=== PATIENT | female | born 1975 | race Caucasian/White ===

== ENCOUNTER 2016-09-10 18:06 | Emergency (ER) | payer OTHER ==
[~2016-09-10] VITALS: Ht 170.2 cm; Wt 90.7 kg
--- NOTE | 2016-09-10 18:57 | RADIOLOGY REPORT ---
EXAMINATION: XR ANKLE, RIGHT CLINICAL INFORMATION: Ankle pain and swelling. COMPARISON: None TECHNIQUE: AP, lateral, and mortise views of the right ankle. FINDINGS: There is a small osseous fragment at the tip of the lateral malleolus which is concerning for an acute avulsion injury. There is mild varus angulation of the tibiotalar joint. No acute talar fractures are identified. Soft tissues are swollen at the lateral and anterior aspects of the ankle most notably. More mild soft tissue swelling is present medially. Calcaneus is unremarkable aside from enthesopathic spurs at the Achilles tendon insertion and plantar fascial origin. IMPRESSION: 1. Small lateral malleolar avulsion fracture, likely at the attachment of the anterior talofibular ligament. Involvement of the calcaneofibular ligament is also possible as there is mild varus angulation at the tibiotalar joint. 2. Soft tissue swelling, most notably at the anterolateral aspect of the ankle
--- NOTE | 2016-09-10 19:31 | ED ANKLE/FOOT INJURY COMPLAINT ---
History of Present Illness General Chief Complaint: Foot or Ankle Injury Stated Complaint: RIGHT ANKLE, MISSED LAST STEP OF STAIRS Source: patient, family Exam Limitations: no limitations Vital Signs & Intake/Output Vital Signs & Intake/Output Vital Signs Date Time Temp Pulse Resp B/P Pulse O2 O2 Flow FiO2 Ox Delivery Rate 09/10 1820 97.1 88 18 150/102 99 Room Air Allergies Coded Allergies: No Known Allergies (09/10/16) Reconcile Medications Calcium Carb/Vit D3/Minerals (Calcium +D & Minerals Chew Tab) 600 MG-400 TAB.CHEW 1 TAB PO DAILY SUPPLEMENT (Reported) Ferrous Sulfate (IRON) 325 MG (65 MG IRON) TABLET 1 TAB PO DAILY SUPPLEMENT ( Reported) Magnesium Oxide (Magnesium) (Unknown Strength) CAPSULE (Unknown Dose) PO DAILY SUPPLEMENT (Reported) [place]-3 Acid Ethyl Esters (Lovaza) 1 GRAM CAPSULE 2 CAP PO BID CHOLESTEROL ( Reported) Oxycodone HCl/Acetaminophen (Percocet 5-325 MG Tablet) 5 MG-325 MG TABLET 1-2 TAB PO Q6P PRN PAIN Triage Note: SATTES THAT SHE MISSED THE LAST STEP AND THAT SHE HEARD A CRACK IN HER R FOOT. PAIN SWELLING AND BRUISING. 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 PT TOOK MOTRIN 800 MG PO PRIOR TO ARRIVAL Triage Nurses Notes Reviewed? yes : No Patient currently breastfeeds: No HPI: Patient states that she missed the last step and inverted her right ankle. Patient heard a pop. Since then she has been having a throbbing pain to her right ankle increases with any attempted movement. There is no radiation of the pain. Pain is 8 out of 10. There is no numbness or tingling. Patient denies hitting her head and there is no loss of consciousness. She denies any headache , nausea or vomiting. Past History Travel History Traveled to [place] past 21 day No Medical History Any Pertinent Medical History? 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 No Review of Systems Review of Systems Constitutional: Reports: no symptoms. Respiratory: Reports: no symptoms. Cardiovascular: Reports: no symptoms. GI: Reports: no symptoms. Musculoskeletal: Reports: see HPI, joint pain, joint swelling. Neurological/Psychological: Reports: no symptoms. Immunologic/Allergic: Reports: no symptoms. Physical Exam Physical Exam General Appearance: well developed/nourished, alert, awake Head: atraumatic, normal appearance Eyes: Bilateral: PERRL, EOMI. Neck: normal inspection, supple, no midline tenderness Leg/Knee/Thigh Left: normal range of motion, normal inspection Leg/Knee/Thigh Right: normal range of motion, normal inspection Ankle Right: ecchymosis, evidence of injury, pain, soft tissue tenderness, swelling, limited range of motion Foot Right: normal inspection, normal range of motion Neuro/Vascular: normal motor function, normal sensation Psychiatric: awake, alert, oriented x 3 Skin: intact, normal color, warm/dry Progress Differential Diagnosis: fracture, dislocation, sprain, contusion Plan of Care: Orders Procedure Date/time Status Durable Medical Equipment 09/10 1933 Active Diagnostic Imaging: Viewed by Me: Radiology Read. Discussed w/RAD: Radiology Read. Radiology Impression: PATIENT: LAZARO RIZO PRESENT AGE: 41 PATIENT ACCOUNT NO: [id number] : 77 LOCATION: [facility] ([facility] ORDERING PHYSICIAN: ENRIQUE HILL DO SERVICE DATE: 09/10/16 EXAM TYPE: RAD - XRY-ANKLE 3 OR MORE VIEWS R EXAMINATION: XR ANKLE, RIGHT CLINICAL INFORMATION: Ankle pain and swelling. COMPARISON: None TECHNIQUE: AP, lateral, and mortise views of the right ankle. FINDINGS: There is a small osseous fragment at the tip of the lateral malleolus which is concerning for an acute avulsion injury. There is mild varus angulation of the tibiotalar joint. No acute talar fractures are identified. Soft tissues are swollen at the lateral and anterior aspects of the ankle most notably. More mild soft tissue swelling is present medially. Calcaneus is unremarkable aside from enthesopathic spurs at the Achilles tendon insertion and plantar fascial origin. IMPRESSION: 1. Small lateral malleolar avulsion fracture, likely at the attachment of the anterior talofibular ligament. Involvement of the calcaneofibular ligament is also possible as there is mild varus angulation at the tibiotalar joint. 2. Soft tissue swelling, most notably at the anterolateral aspect of the ankle DICTATED BY: DINO PEREZ MD DATE/TIME DICTATED:09/10/161850 GRAIN ELEVATOR OPERATOR: SMITH DATE/TIME TRANSCRIBED:09/10/161850 CONFIDENTIAL, DO NOT COPY WITHOUT APPROPRIATE AUTHORIZATION. <Electronically signed in Other Vendor System> SIGNED BY: DINO PEREZ MD 09/10/161856 Departure Departure Disposition: HOME OR SELF CARE Condition: Stable Clinical Impression Primary Impression: Closed right ankle fracture Referrals: ZULAY BARNEY,JAS TAPIA APRN (PCP/Family) Additional Instructions: KEEP SPLINT ON AND KEEP IT DRY USE CRUTCHES KEEP ANKLE ELEVATED WHEN YOU CAN RETURN IF SYMPTOMS WORSEN OR FOR ANY CONCERNS Departure Forms: Customer Survey General Discharge Information Prescriptions: Current Visit Scripts Oxycodone HCl/Acetaminophen (Percocet 5-325 MG Tablet) 1-2 TAB PO Q6P PRN PAIN #20 TAB Procedures Splinting Location: RIGHT ANKLE Manual Alignment Performed: No Hand-Made Type: orthoglass Splint: posterior walking Splint Applied By: splint applied by me Pre-Proc Neuro Vasc Exam: normal Post-Proc Neuro Vasc Exam: normal
[2016-09-10] MEDS ORDERED: PERCOCET 5-3251 EACH PO (19:33)
[2016-09-10] MEDS ORDERED: LOVAZA1 G1 PO (19:37)
[2016-09-10] MEDS ORDERED: IRON325 M3 PO (19:37)
[2016-09-10] MEDS ORDERED: MAGNESIUM400 M1 PO (19:38)
[2016-09-10] MEDS ORDERED: CALCIUM +D & M1 EACH PO (19:39)
[2016-09-10 19:58] VITALS: BP 148/80
== END 2016-09-10 19:59 ==
LOC: ERH 18:06
DX: S82.61XA Displaced fracture of lateral malleolus of right fibula, initial encounter for closed fracture (principal); X58.XXXA Exposure to other specified factors, initial encounter
CPT/HCPCS: 73610-RT

== ENCOUNTER 2018-03-02 11:32 | Emergency (ER) | payer OTHER ==
[~2018-03-02] VITALS: Ht 170.2 cm; Wt 90.7 kg
[~2018-03-02 11:32] MED LIST: CALCIUM +D & M1 EACH PO; IRON325 M3 PO; LOVAZA1 G1 PO; MAGNESIUM400 M1 PO; PERCOCET 5-3251 EACH PO
[2018-03-02 11:37] VITALS: BP 175/103
--- NOTE | 2018-03-02 12:15 | ED EYE COMPLAINT ---
History of Present Illness General Chief Complaint: Eye Problems Stated Complaint: ?LEFT EYE "ABCESS" PER PT Source: patient Exam Limitations: no limitations Vital Signs & Intake/Output Vital Signs & Intake/Output Vital Signs Date Time Temp Pulse Resp B/P B/P Pulse O2 O2 Flow FiO2 Mean Ox Delivery Rate 03/02 1137 98.8 85 20 175/103 98 Room Air Allergies Coded Allergies: No Known Allergies (09/10/16) Reconcile Medications Calcium Carb/Vit D3/Minerals (Calcium +D & Minerals Chew Tab) 600 MG-400 TAB.CHEW 1 TAB PO DAILY SUPPLEMENT (Reported) Ferrous Sulfate (IRON) 325 MG (65 MG IRON) TABLET 1 TAB PO DAILY SUPPLEMENT ( Reported) Magnesium Oxide (Magnesium) (Unknown Strength) CAPSULE (Unknown Dose) PO DAILY SUPPLEMENT (Reported) [place]-3 Acid Ethyl Esters (Lovaza) 1 GRAM CAPSULE 2 CAP PO BID CHOLESTEROL ( Reported) Oxycodone HCl/Acetaminophen (Percocet 5-325 MG Tablet) 5 MG-325 MG TABLET 1-2 TAB PO Q6P PRN PAIN Triage Note: PT TO ED C/O LEFT EYE PAIN AND SWELLING SINCE SATURDAY. SWELLING HAS GOTTEN WORSE. DENIES VISION CHANGES. STATES PAIN IS WORSE WITH BLINKING. Triage Nurses Notes Reviewed? yes : No Patient currently breastfeeds: No HPI: Patient presents for evaluation of constant, mild to moderate swelling and redness of the left lower eyelid that began Saturday. Patient has tried a teabag without improvement. Patient is concerned that she is beginning to develop an abscess. Past History Travel History Traveled to [place] past 21 day No Medical History Any Pertinent Medical History? 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 No Review of Systems Review of Systems Constitutional: Reports: no symptoms. Eyes: Reports: see HPI. Ear: Reports: no symptoms. Nose: Reports: no symptoms. Mouth: Reports: no symptoms. Throat: Reports: no symptoms. Respiratory: Reports: no symptoms. Cardiovascular: Reports: no symptoms. GI: Reports: no symptoms. Genitourinary: Reports: no symptoms. Musculoskeletal: Reports: no symptoms. Skin: Reports: no symptoms. Neurological/Psychological: Reports: no symptoms. Hematologic/Endocrine: Reports: no symptoms. Immunologic/Allergic: Reports: no symptoms. All Other Systems: Reviewed and Negative Physical Exam General Appearance: well developed/nourished, no apparent distress General Inspection: SEE BELOW General Inspection: normal inspection Physical Exam Comments: Gen.: Well-nourished, well-developed, no acute respiratory distress. Head: Normocephalic, atraumatic. Eyes: Left eye: Mild erythema and soft tissue swelling of the medial/nasal aspect of the lower lid, no signs of trauma, no drainage/discharge, PERRLA, EOMI Ears: Normal inspection bilaterally Nose: Normal inspection Throat/mouth : Moist mucosa Neck: Supple, full range of motion, no goiter Lungs: Quiet respirations Back: Normal range of motion Extremities: Normal range of motion grossly, no cyanosis clubbing or edema of the upper extremities Neurologic: Cranial nerves grossly intact, speech is clear Skin: warm and dry Psychiatric: Calm, cooperative, no apparent delusions or hallucinations Progress Differential Diagnosis: STYE, CHALAZION, HORDEOLUM, CELLULITIS Plan of Care: See discharge instructions Departure Departure Disposition: HOME OR SELF CARE Condition: Stable Clinical Impression Primary Impression: Infection of eyelid Referrals: Mei Stevens APRN (PCP/Family) Additional Instructions: Warm compresses 3-4 times per day. Ibuprofen 600 mg every 6 hours as needed for discomfort. Duricef as prescribed for possible infection. Follow-up with your inspector circuitry negative if not improving over the next 48-72 hours. Return if any concerns or sudden worsening. Thank you for choosing the Emergency Department for your care. It was a pleasure to serve you today. Eddy Grimaldo M.D. [facility] Departure Forms: Customer Survey General Discharge Information Prescriptions: Current Visit Scripts Cefadroxil 2 CAP PO BID #[id number] CAP
[2018-03-02] MEDS ORDERED: CEFADROXIL500 M1 PO (12:25)
== END 2018-03-02 12:30 ==
LOC: ERH 11:32
DX: H01.9 Unspecified inflammation of eyelid (principal)